=== PATIENT | female | born 1985 | race Caucasian/White ===

== ENCOUNTER → 2023-04-21 14:02 | Outpatient (CLI) | payer OTHER, SELFPAY ==
--- NOTE | ~2023-04-21 | MM_ITS ---
EXAMINATION: MM screening bridger BI w quan HISTORY: Screening TECHNIQUE: Craniocaudal and mediolateral oblique 3-D tomosynthesis images were obtained and synthetic 2-D images were generated. CAD analysis was submitted and interpreted. COMPARISON: No prior mammogram is available for comparison at this institution. BREAST PARENCHYMAL COMPOSITION: The breasts are extremely dense, which lowers the sensitivity of mamm ography FINDINGS: There is no evidence of suspicious mass, calcification, or architectural distortion to sugg est malignancy in either breast. There has been no suspicious interval change. IMPRESSION: 1. No mammographic evidence of malignancy. 2. Recommend routine screening mammography in one year. BI-RADS Category 1: Negative Reviewed, dictated and finalized at location A. IGHT SLICING MACHINE OPERATOR
== END ==
PROVIDERS: PCP Obstetrics & Gynecology; Visit Provider Obstetrics & Gynecology
DX: Z12.31 Encounter for screening mammogram for malignant neoplasm of breast (principal)
CPT/HCPCS: 77063; 77067

== ENCOUNTER 2023-09-28 15:06 | Emergency (ER) | payer OTHER, SELFPAY ==
--- NOTE | 2023-09-28 15:16 | ED.SKABFB ---
HPI - Skin/Abscess/Foreign Bdy General Chief complaint: Skin/Abscess/Foreign Body Stated complaint: knot on head Source: patient and RN notes reviewed Mode of arrival: ambulatory Limitations: no limitations History of Present Illness MD complaint: rash Related Data Home Medications Medication Instructions Recorded Confirmed cyanocobalamin (vitamin B-12) 1,000 mcg IM WEEKLY 09/28/23 09/28/23 1,000 mcg/mL injection solution insulin syringe-needle U-100 1 mL 09/28/23 09/28/23 31 gauge x 09/22 sertraline 100 mg tablet 100 mg PO DAILY 09/28/23 09/28/23 Allergies Allergy/AdvReac Type Severity Reaction Status Date / Time Sulfa (Sulfonamide AdvReac Mild Rash Verified 09/28/23 15:12 Antibiotics) Review of Systems Review of Systems: CONSTITUTIONAL: Denies malaise, chills, sweats, or fever. EYES: Denies redness, or discharge. ENT: Denies rhinorrhea, congestion, swollen lips, swollen tongue CARDIOVASCULAR: Denies chest pain, palpitations, or edema. RESPIRATORY: Denies cough or dyspnea. GASTROINTESTINAL: Denies abdominal pain, nausea, vomiting SKIN: Reports rash MUSCULOSKELETAL: Denies joint pain or myalgia. NEUROLOGIC: Denies headache. All systems reviewed & are unremarkable except as noted in HPI and below PMFSH Family History Family History (System 04/22/23 @ 12:03 by Facundo Milton) Grandparent Family history of osteoporosis Family history of alcoholism Family history of lung cancer Diabetes mellitus Father Depression Hypertension Patient's father is in good health Family history of alcoholism Mother Patient's mother is in good health Sibling Patient's sister is in good health Social History Social History (System 04/22/23 @ 12:03 by Facundo Milton) Alcohol intake: current Comments At time of signature, agree with nursing past medical, surgical, social and family history. There is no relevant family history pertinent to the presenting complaint Exam Narrative: GENERAL: Well-appearing, well-nourished, and in no acute distress. HEAD: Normocephalic, atraumatic. EYES: PERRLA, conjunctivae clear, and EOMI. ENT: Mucous membranes moist. Oropharynx without edema, erythema or lesions. NECK: Supple. No lymphadenopathy CHEST: Clear to auscultation. No respiratory distress. HEART: Regular rate and rhythm. SKIN: Warm, dry. Patches of erythema and edema NEURO: Alert and oriented x3. PSYCH: Normal mood and affect Course Course Emergency Course: Patient is aware of diagnosis, understands and agrees to treatment plan. Anticipatory guidance given. Patient agrees to follow-up as directed and is aware of reasons to seek care at the emergency department. Portions of this record may have been created with voice recognition software Level of Care: Express Care Visit Vital Signs Vital signs: Reviewed. MDM - Skin/Abscess/Foreign Bdy MDM Narrative Medical decision making narrative: Does not appear at this time to be erythema multiforme, bullous, SJS, TEN; no evidence at this time to suggest RMSF, endocarditis or Lyme disease; patient looks well, nontoxic and is tolerating oral intake; no neurologic signs or symptoms; no headache, photophobia or neck pain; afebrile; appropriate for initial outpatient treatment; discussed the importance of follow-up, patient agrees; question, viral exanthema, contact dermatitis, allergic dermatitis, eczema, urticaria, [ xx ]. No soft palate or uvula edema, no tongue, lip edema or other mucosal involvement, no respiratory compromise, no stridor, no wheezing, no wheezing, no history of syncope, no hypotension, no nausea, vomiting, or diarrhea. Instructed patient to go to nearest ER immediately for any worsening symptoms including but not limited to: fever, spreading rash, pain, sore throat, headache, dizziness, chest pain, trouble breathing, or any symptoms concerning to the patient. Critical Care Time Critical Care Time Critical Care Time: No Discharge Pl
[2023-09-28 15:19] VITALS: BP 146/77; PULSE 58; RESP 16; TEMP 36.7; O2SAT 100
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
== END 2023-09-28 15:32 | disposition home or self-care (01) ==
PROVIDERS: Emergency Provider Nurse Practitioner; PCP Nurse Practitioner Family
DX: S00.83XA Contusion of other part of head, initial encounter (principal); W50.0XXA Accidental hit or strike by another person, initial encounter; S06.0X0A Concussion without loss of consciousness, initial encounter
CPT/HCPCS: 99212; G0463

== ENCOUNTER 2024-04-22 11:20 | Outpatient (CLI) | payer OTHER, SELFPAY ==
--- NOTE | ~2024-04-22 | MM_ITS ---
EXAMINATION: MM screening bridger BI w quan HISTORY: Screening TECHNIQUE: Craniocaudal and mediolateral oblique 3-D tomosynthesis images were obtained and synthetic 2-D images were generated. CAD analysis was submitted and interpreted. COMPARISON: 04/21/2023 BREAST PARENCHYMAL COMPOSITION: Dense: The breasts are extremely dense, which lowers the sensitivity of mammography. FINDINGS: There is developing asymmetry in the upper central aspect of the right breast, posterior th ird. The left breast is stable without evidence for malignancy. IMPRESSION: 1. Developing right breast asymmetry. 2. Additional mammographic views and possible breast ultrasound are recommended. BI-RADS Category 0: Incomplete: Needs additional imaging evaluation. Reviewed, dictated and finalized at location B. SCAPE SUPERVISOR IMPRESSION: 1. Developing right breast asymmetry. 2. Additional mammographic views and possible breast ultrasound are recommended . BI-RADS Category 0: Incomplete: Needs additional imaging evaluation.
== END 2024-04-22 11:21 | disposition home or self-care (01) ==
PROVIDERS: PCP Obstetrics & Gynecology; Visit Provider Obstetrics & Gynecology
DX: Z12.31 Encounter for screening mammogram for malignant neoplasm of breast (principal); R92.8 Other abnormal and inconclusive findings on diagnostic imaging of breast
CPT/HCPCS: 77063; 77067

== ENCOUNTER 2024-05-15 08:50 | Outpatient (CLI) | payer OTHER, SELFPAY ==
--- NOTE | ~2024-05-15 | MMUS_ITS ---
EXAMINATION: US breast RT complete, MM diagnostic bridger RT w quan HISTORY: Follow-up right breast asymmetry TECHNIQUE: Additional 3-D tomosynthesis images of the right breast were performed and synthetic 2-D i mages were generated. CAD analysis was submitted and interpreted. High resolution complete right aminta st ultrasound was performed. COMPARISON: Comparison to multiple prior studies sequentially, with oldest reviewed study dated 04/09. BREAST PARENCHYMAL COMPOSITION: Dense: The breasts are extremely dense, which lowers the sensitivity of mammography. FINDINGS: MAMMOGRAPHIC FINDINGS: Right breast asymmetry in the upper central aspect of the right breast is less dense with spot compre ssion and mediolateral views without discrete mass. No architectural distortion. ULTRASOUND: Complete US of all 4 quadrants of the right breast/s and retroareolar region was reviewed. At 6:00, 3 .5 cm from the nipple there is an 8 mm cyst. No definite abnormality is identified in the area of bridger mographic concern. IMPRESSION: 1. No evidence for malignancy. Probable benign focal asymmetry in the upper central right breast post eriorly without sonographic correlate. 2. Recommend 6 month follow-up diagnostic right mammogram and possible additional ultrasound. BI-RADS category 3, probably benign findings. Reviewed, dictated and finalized at location B. TH SAFETY MANAGER IMPRESSION: 1. No evidence for malignancy. Probable benign focal asymmetry in the upper dimas tral right breast posteriorly without sonographic correlate. 2. Recommend 6 month follow-up diagnostic right mammogram and possible addition al ultrasound. BI-RADS category 3, probably benign findings.
== END 2024-05-15 08:51 | disposition home or self-care (01) ==
LOC: MICIMG 08:50
PROVIDERS: PCP Obstetrics & Gynecology; Visit Provider Obstetrics & Gynecology
DX: R92.8 Other abnormal and inconclusive findings on diagnostic imaging of breast (principal)
CPT/HCPCS: 76641; 77061; 77065; G0279

== ENCOUNTER 2024-06-26 08:25 | Emergency (ER) | payer OTHER, SELFPAY ==
[2024-06-26 08:58] VITALS: BP 122/65; PULSE 61; RESP 16; TEMP 36.2; O2SAT 100
--- NOTE | 2024-06-26 08:58 | ED.EYEPROB ---
HPI - Eye Problem General Chief complaint: Eye Problems Stated complaint: eye infection Time Seen by Provider: 06/26/24 09:00 Source: patient Mode of arrival: ambulatory Limitations: no limitations History of Present Illness HPI Narrative: 39-year-old female presented for complaint of right eye irritation x2 days. Noted yellow drainage this morning. States she has had upper lid swelling and the inner eye was red but now improved. She reports occasional pain and itching. Also reports occasional blurred vision. Used warm and cold compresses to the site. MD chief complaint: eye pain Related Data Home Medications ?Medication ?Instructions ?Recorded ?Confirmed ?Last Taken ?Type cyanocobalamin (vitamin B-12) 1,000 mcg IM WEEKLY 09/28/23 09/28/23 Unknown History 1,000 mcg/mL injection solution insulin syringe-needle U-100 1 mL 09/28/23 09/28/23 Unknown History 31 gauge x 09/22 sertraline 100 mg tablet 100 mg PO DAILY 09/28/23 09/28/23 Unknown History Allergies Allergy/AdvReac Type Severity Reaction Status Date / Time Sulfa (Sulfonamide AdvReac Mild Rash Verified 06/26/24 08:53 Antibiotics) Review of Systems Review of Systems: CONSTITUTIONAL: Denies body aches, fever, chills EYES:Endorses swelling drainage and pain FB sensation right eye, Denies visual changes photophobia ENT: Denies rhinorrhea, congestion, sore throat, or otalgia. CARDIOVASCULAR: Denies chest pain, palpitations RESPIRATORY: Denies cough or dyspnea. GASTROINTESTINAL: Denies abdominal pain, nausea, vomiting, or diarrhea. SKIN: Denies rash NEUROLOGIC: Denies headache, numbness, tingling, or weakness. All systems reviewed & are unremarkable except as noted in HPI and below [facility] Family History Family History (System 04/22/23 @ 12:03 by Facundo Milton) Grandparent Family history of osteoporosis Family history of alcoholism Family history of lung cancer Diabetes mellitus Father Depression Hypertension Patient's father is in good health Family history of alcoholism Mother Patient's mother is in good health Sibling Patient's sister is in good health Social History Social History (System 04/22/23 @ 12:03 by Facundo Milton) Alcohol intake: current Comments At time of signature, I have reviewed and agree with nursing past medical, surgical, social and family history unless otherwise noted. Please see nursing chart for further information. There is no relevant family history pertinent to the presenting complaint Exam Narrative: GENERAL: Well-appearing HEAD: Normocephalic, atraumatic. EYES: Minimal right conjunctival injection, Minimal right upper eye lid swelling, no drainage. PERRLA, EOMI. Lid eversion shows no FB. No ulceration, corneal abrasion or FB noted on brunner lamp exam. ENT: Mucous membranes pink and moist. No rhinorrhea. TMs normal bilaterally. Throat normal. Uvula midline. CHEST: Clear to auscultation. HEART: Regular rate and rhythm. ABDOMEN: Soft, nontender, nondistended SKIN: Warm, dry, no rash. Normal skin turgor. NEURO: No focal deficits. Alert and oriented x3 PSYCH: Normal affect. Course Course Emergency Course: Patient is aware of diagnosis, understands and agrees to treatment plan. Anticipatory guidance given. Patient agrees to follow-up as directed and is aware of reasons to seek care at the emergency department. Portions of this record may have been created with voice recognition software Level of Care: Express Care Visit Vital Signs Vital signs: Vital Signs Temperature 97.1 F L 06/26/24 08:58 Pulse Rate 61 06/26/24 08:58 Respiratory Rate 16 06/26/24 08:58 Blood Pressure 122/65 06/26/24 08:58 Pulse Oximetry 100 06/26/24 08:58 Oxygen Delivery Room Air 06/26/24 08:58 Temperature 97.1 F L 06/26/24 08:58 Pulse Rate 61 06/26/24 08:58 Respiratory Rate 16 06/26/24 08:58 Blood Pressure 122/65 06/26/24 08:58 Pulse Oximetry 100 06/26/24 08:58 Oxygen Delivery Room Air 06/26/24 08:58 Procedures FB Removal Eye Foreign Body #1: Foreign Body Removal Date: 06/26/24 Location: eye (R) Topical anesthetic used: tetracaine Foreign body: other (none) Evidence of corneal penetration: No Procedure performed under: other (brunner lamp) Patient tolerated procedure: well and no complications Foreign Body Removal Narrative: right Eye was anesthetized with 1 drop of tetracaine and anesthesia was achieved. Lid was everted and examined for foreign body. No foreign body, corneal abrasion, or ulceration identified with Brunner lamp. The eye was flushed with eye wash. Pt tolerated procedure well. MDM - Eye Problem MDM Narrative Medical decision making narrative: Discussed physical exam findings, no apparent corneal abrasion, ulceration or FB on exam, will treat for conjunctivitis. Advised supportive measures and signs/symptoms to go to the ER. Pt is appropriate for outpt treatment and f/u. Differential Diagnosis Differential diagnosis: Likely corneal abrasion, conjunctivitis, acute iritis and other Discharge Plan Discharge Clinical Impression: Conjunctivitis Patient Disposition: Home, Self-Care Condition: Stable Instructions: Antibiotic Form, Conjunctivitis (ED) Additional Instructions: Avoid touching or rubbing your eye. Use over the counter lubricating eye drops as needed for irritation Use a warm or cool washcloth on your eye for comfort Use eyedrops as directed - you are contagious for 24 hours after starting the antibiotic Practice good handwashing and hygiene to prevent spread of infection Use new makeup, lashes etc. You may take Tylenol or ibuprofen for pain Follow-up with PCP or auto electrical technician if condition is not improving in 2-3days. Go to the emergency room if you have severe pain or pressure behind your eye, difficulty seeing, or other severe symptoms Patient Language: Icelandic Prescriptions: New ofloxacin 0.3 % drops See Rx Instructions .ROUTE .COMPLEX Qty: 10 0RF Rx Instructions: put 2 drops into affected eye(s) every 2-4 h x 2 days, then 2 drops 4 times/day days 3-7 No Action sertraline 100 mg tablet 100 mg PO DAILY cyanocobalamin (vitamin B-12) 1,000 mcg/mL solution 1,000 mcg IM WEEKLY (DME) insulin syringe-needle U-100 1 mL 31 gauge x 5/16 syringe MISCELLANEOUS Follow-up/Referrals: Gita Anderson APRN [Primary Care Provider] - Time of Disposition: 09:19
--- OUTSIDE RECORDS SUMMARY | 2024-06-26 11:34 | XMS_ITS | Continuity of Care Document ---
Author Organization [facility] Address [address] [address] Phone Care Team Providers Care Biodiesel Operations Manager Name Role Phone Marlen Cuenca PA-C Unavailable Unavai lable Allergies, Adverse Reactions, Alerts Substance Reaction Status Criticality No Known Allergies Active No Inform ation Medications Medication Instructions Dosage Effective Dates (start - stop) Status Comments No Drug Therapy Prescribed Procedures Procedure Date POSTOP FOLLOW-UP VISIT OFFICE/OUTPATIENT VISIT EST POSTOP FOLLOW-UP VISIT OFFICE CONSULTATION Advance Directives Directive Yes / No Effective Date File Name No Information Encounters Encounter Description Practice Location Reason(s) For Visit Diagnoses Date Provider Providers Copied on Encounter [facility], [address] [place] [address], [facility], tel:[phone] [facility] Follow Up of R foot (chief complaint) Closed fracture of fifth toe of right foot with routine healing 5 Bang Gee. [address], [id number]. tel:[phone] OFFICE/OUTPATI ENT VISIT EST [facility], [address] [place] [address], [address], tel:[phone] [facility] Follow Up of RT FOOT (chief complaint) Fx metatarsal -closedMet alarsalgia [address] [place], [place], [id number]. tel:[phone] [facility], [address], [address], tel:[phone] [facility] Follow Up of RT FOOT (chief complaint) Fx metatarsal -closed 5 Bang Gee. [address] [address], [place], [place], [id number]. tel:[phone] OFFICE CONSULTATION [facility], [address] [facility] [address], [place], [address], tel:[phone] [facility] R foot (chief complaint) Fx metatarsal -closed 5 Doni Chapa. [address] [place], [place], [id number]. tel:[phone] Referring Provider: Alberto Mckeon, [address] [facility] [address], [place], [address]. tel:[phone] Family History Family Member Type Diagnosis Age At Onset Mother Problem (finding) Alive and well Payers Payer name Insurance type Covered constitution party ID Authoriza tion(s) [facility] Choice/Choice Plus E2 [id number] Social History Type Description Quantity Date Captured Comments Alcohol Use Details Unknown Caffeine Use Details Unknown Tobacco Use Status No Information Smoking Status No Information Sex Female Chief Complaint And Reason For Visit From encounter dated '01/24/2015 08:30'. Follow Up of R foot (chief complaint) Reason For Referral Reason For Referral No Information Plan Of Treatment Date Type Action Status Referral Ordered: RADEX FOOT COMPL MINIMUM 3 VIEWS RT ordered History Of Present Illness Encounter Date Complaint History Of Prese nt Illness Follow Up of R foot Follow Up of RT FOOT Follow Up of RT FOOT R foot Functional Status Date Functional Assessmen t No Information Medications Administered Medication Instructions Dosage Effective Dates (start - stop) Status Comments No Drug Therapy Prescribed Instructions Date Instruction Additional Infor mation Elevate extremity above heart. R elated to Closed fracture of fifth toe of right foot with routine healing Immobilize as directed. Related to Closed fracture of fifth toe of right foot with routine healing Apply ice as tolerated. Related to Closed fracture of fifth toe of right foot with routine healing Take medication as directed. Rel ated to Closed fracture of fifth toe of right foot with routine healing Immobilize as directed. Related to Fx metatarsal-closed Apply ice as tolerated. Related to Fx metatarsal-closed Elevate extremity above heart. R elated to Metalarsalgia Immobilize as directed. Related to Metalarsalgia Apply ice as tolerated. Related to Metalarsalgia Take medication as directed. Rel ated to Metalarsalgia Elevate extremity above heart. R elated to Fx metatarsal-closed Immobilize as directed. Related to Fx metatarsal-closed Assessments Type Assessment Date assessment Closed fracture of f ifth toe of right foot with routine healing Patient Care Teams Name Effective Dates (start - stop) Status Members No Information
--- OUTSIDE RECORDS SUMMARY | 2024-06-26 11:34 | XMS_ITS | Clinical Summary ---
Author Organization [facility] Administrative Offices Address [address] [place] [id number] Care Team Providers Care Operations Executive Name Role Phone Unavailable Primary Care Provider Unavailabl e Social History Tobacco Use Types Packs/Day Years Used Date Smoking Tobacco: Never Assessed Comments Unknown Sex and Gender Information Value Date Recorded Sex Assigned at Not on file Legal Sex Female 10:38 AM CDT Gender Identity Not on file Sexual Orientation Not on file Plan of Treatment Health Maintenance Due Date Last Done Comments DTAP/TDAP/TD VACCINES (1 - Tdap) 2002 HEPATITIS B VACCINES (1 of 3 - 19+ 3-dose series) 2002 CERVICAL CANCER SCREENING 2013 BREAST CANCER SCREENING 2023 02/06/20 20, 12/08/2018 INFLUENZA VACCINE (#1) 2023 01/13/2019 HPV VACCINES Aged Out No longer eligi ble based on patient's age to complete this topic PNEUMOCOCCAL VACCINE 0-64 YEARS Aged Out No longer eligible b ased on patient's age to complete this topic Procedures Procedure Name Priority Date/Time Associated Diagnosis Comments MAMMO 3D CORRINE SCREEN BILAT W OR WO CAD Routine 02/06/2020 11:46 AM CDT Breast cancer screening by mammogram from Last 3 Months or Most Recently Relevant to Health Maintenance Results * MAMMO SCRN BILAT 3D CORRINE W OR WO CAD (02/06/2020 11:46 AM CDT) Anatomical Region Laterality Modality Breast Bilateral Mammography 02/06/2020 11:4 6 AM CDT Impressions 02/07/2020 3:36 PM CDT IMPRESSION: Negative bilateral screening mammogram. Recommend routine followup. OVERALL FINAL ASSESSMENT: BI-RADS CATEGORY 1: Negative DICTATION LOCATION: [facility] Narrative 02/07/2020 3:36 PM CDT BILATERAL SCREENING DIGITAL MAMMOGRAMS WITH 3D TOMOSYNTHESIS AND CAD DATE: 02/06/2020 11:46 AM HISTORY: Annual screening study. COMPARISON: 12/08/2018 TECHNIQUE: A bilateral screening mammogram was performed. Low-dose full-field digital breast tomosynthesis examination was performed with 2D and 3D acquisitions. Examination is read in conjunction with computer aided detection. BREAST COMPOSITION: Heterogeneously dense, which limits the sensitivity of mammography. FINDINGS: No new masses, suspicious calcifications, or areas of asymmetry or distortion are identified. The images were reviewed using the CAD system. Procedure Note Josselin Greene MD - 02/07/2020 BILATERAL SCREENING DIGITAL MAMMOGRAMS WITH 3D TOMOSYNTHESIS AND CAD DATE: 02/06/2020 11:46 AM HISTORY: Annual screening study. COMPARISON: 12/08/2018 TECHNIQUE: A bilateral screening mammogram was performed. Low-dose full-field digital breast tomosynthesis examination was performed with 2D and 3D acquisitions. Examination is read in conjunction with computer aided detection. BREAST COMPOSITION: Heterogeneously dense, which limits the sensitivity of mammography. FINDINGS: No new masses, suspicious calcifications, or areas of asymmetry or distortion are identified. The images were reviewed using the CAD system. IMPRESSION: Negative bilateral screening mammogram. Recommend routine followup. OVERALL FINAL ASSESSMENT: BI-RADS CATEGORY 1: Negative DICTATION LOCATION: [facility] Christopher Vaughn MD MAMMO ORDERABLES Sara l Result from Last 3 Months or Most Recently Relevant to Health Maintenance Insurance [facility] OPEN ACCESS HMO
--- OUTSIDE RECORDS SUMMARY | 2024-06-26 11:34 | XMS_ITS | Clinical Summary ---
Author Organization [facility] Address [address] [place] [id number] Care Team Providers Care Complaint Evaluation Supervisor Name Role Phone Gita Anderson [facility] Primary Care Provider + Social History Tobacco Use Types Packs/Day Years Used Date Smoking Tobacco: Never Assessed Comments Unknown Sex and Gender Information Value Date Recorded Sex Assigned at Not on file Legal Sex Female 4:16 PM CDT Gender Identity Not on file Sexual Orientation Not on file Plan of Treatment Health Maintenance Due Date Last Done Comments Cervical Cancer Screening Pa p Smear (Age 30 to 64) Every 3 Years 1983 Annual Physical 1986 Hepatitis C 2001 DTaP, Tdap and Td Vaccines ( 1 - Tdap) 2002 Hepatitis B Vaccines (1 of 3 - 19+ 3-dose series) 2002 Cervical Cancer Screening Pa p with HPV Testing (Age 30 to 64) Every 5 Years 2013 Cervical Cancer Screening wi th HPV 2013 Mammogram Screening 04/08/2023 04/08/2021 COVID-19 Vaccine (2023-2 5 season) 2024 Influenza Adult (#1) 2024 03/05/2020, 01/13/2019 HPV Vaccines Aged Out No longer eligi ble based on patient's age to complete this topic Meningococcal B Vaccine Aged Out No l onger eligible based on patient's age to complete this topic Meningococcal Vaccine Aged Out No abdoul gomez eligible based on patient's age to complete this topic Pneumococcal Vaccine: Pediatrics (0 to 5 Years) and At-Risk Patients (6 to 64 Years) Aged Out No longer eligible b ased on patient's age to complete this topic RSV Immunizations Under 20 Months Aged Out No longer eligible b ased on patient's age to complete this topic Procedures Procedure Name Priority Date/Time Associated Diagnosis Comments MG SCREENING W CORRINE WALKER DIGI Routine 04/08/2021 3:33 PM OFFICE MACHINES SALES REPRESENTATIVE Encounter for screening mammogram for malignant neoplasm of breast from Last 3 Months or Most Recently Relevant to Health Maintenance Results * MG SCREENING W CORRINE WALKER DIGI (04/08/2021 3:33 PM OFFICE MACHINES SALES REPRESENTATIVE) Anatomical Region Laterality Modality Breast Bilateral Mammography 04/09/2021 3:19 PM OFFICE MACHINES SALES REPRESENTATIVE Impressions 04/09/2021 3:22 PM OFFICE MACHINES SALES REPRESENTATIVE IMPRESSION: No suspicious mammographic findings. Recommendation: 1. Routine Screening, Bilateral Assessment: ACR BI-RADS 2 - BENIGN FINDING(S) Comments: A negative or benign mammography report should not delay follow-up or biopsy of a clinically significant finding or palpable abnormality. Regions of dense breast tissue may obscure findings on mammogram. Ordered By: LIZANDRO CARTWRIGHT Interpreted By: Lizandro Jones MD, 04/09/2021 3:19 PM Narrative 04/09/2021 3:22 PM OFFICE MACHINES SALES REPRESENTATIVE Examination: Screening bilateral mammogram with 3-D tomosynthesis Clinical history: No family history of breast cancer. No present breast related complaints. Comparison: 02/06/2020, 12/08/2018 Technique: Digital screening mammography of both breasts was performed. 3-D tomosynthesis technique was also performed. This study was read with the assistance of computer-aided detection system. Tissue density: The breast tissue is heterogeneously dense, which may obscure small masses. Findings: No suspicious masses, malignant appearing calcifications, skin thickening or other abnormalities are present. No significant change from the prior exam. us Lizandro Cartwright MD MAMMO Final Resu lt from Last 3 Months or Most Recently Relevant to Health Maintenance Insurance Care Teams Complaint Evaluation Supervisor Relationship Specialty Start Date End Date Gita Anderson, EVENT PLANNING MANAGER- [address] [place] [id number] PCP - General NURSE PRACTITIONER 01/15/21
== END 2024-06-26 09:20 | disposition home or self-care (01) ==
PROVIDERS: Emergency Provider Nurse Practitioner Family; PCP Nurse Practitioner Family
DX: H10.9 Unspecified conjunctivitis (principal)
CPT/HCPCS: 99213; A9270; G0463

== ENCOUNTER 2024-12-06 09:30 | Outpatient (CLI) | payer OTHER, SELFPAY ==
--- NOTE | ~2024-12-06 | MMUS_ITS ---
EXAMINATION: US breast RT complete, MM diagnostic bridger RT w quan HISTORY: 6 month follow-up TECHNIQUE: Additional 3-D tomosynthesis images of the right breast were performed and synthetic 2-D i mages were generated. CAD analysis was submitted and interpreted. High resolution complete right aminta st ultrasound was performed. COMPARISON: Comparison to multiple prior studies sequentially, with oldest reviewed study dated 04/09. BREAST PARENCHYMAL COMPOSITION: Dense: The breasts are extremely dense, which lowers the sensitivity of mammography. FINDINGS: MAMMOGRAPHIC FINDINGS: The right breast is stable. No new masses, calcifications or architectural distortion are identified to suggest malignancy. ULTRASOUND: Complete US of all 4 quadrants of the right breast/s and retroareolar region was reviewed. At 6:00, 3 .5 cm from the nipple there is a 7 mm cyst. At 4:00, 2 cm from the nipple there is an oval hypoechoic 5 mm mass with parallel orientation, no internal vascularity and no posterior features, not definite ly seen on prior examination. IMPRESSION: 1. Probable benign right breast mass at 4:00, 2 cm from the nipple measuring 5 mm. 2. Recommend 6 month follow-up Limited right breast ultrasound BI-RADS category 3, probably benign findings. Reviewed, dictated and finalized at location B. IMPRESSION: 1. Probable benign right breast mass at 4:00, 2 cm from the nipple measuring 5 mm. 2. Recommend 6 month follow-up Limited right breast ultrasound BI-RADS category 3, probably benign findings.
== END 2024-12-06 09:31 | disposition home or self-care (01) ==
LOC: MICIMG 09:30
PROVIDERS: PCP Nurse Practitioner Family; Visit Provider Obstetrics & Gynecology
DX: R92.8 Other abnormal and inconclusive findings on diagnostic imaging of breast (principal)
CPT/HCPCS: 76641; 77061; 77065; G0279